=== PATIENT | female | born 1980 | race Caucasian/White ===

== ENCOUNTER 2022-07-10 05:45 | Day surgery (SDC) | payer BC ==
[2022-07-05 10:50] VITALS: BMI 29.5
[2022-07-09 10:02] LABS: Hemoglobin 12.8 g/dL (12.0-15.5); Mean Corpuscular HGB CONC 31.8 g/dL (32.0-36.0); Mean Corpuscular Volume 84.8 fl (81.6-98.3); Mean Platelet Volume 10.4 fl (7.4-10.4); Platelet Count 244 10x3/uL (150-450); RBC Distribution Width 13.3 % (11.5-14.5); Red Blood Cell (RBC) Count 4.74 10x6/uL (3.90-5.03); White Blood Cell (WBC) Count 6.6 10x3/uL (3.5-10.5)
[2022-07-09 10:28] LABS: BHCG - Serum Negative (NEGATIVE); Pregs Control Background? CLEAR/WHITE (CLR/WHITE); Pregs Control Bar Appear? YES (CONTROL BAR)
[2022-07-10] MEDS ORDERED: CeleCOXIB 100 MG CAP ONE (06:26)
[2022-07-10] MEDS ORDERED: Famotidine/PF 20 mg/2ml Vial ONE (06:27)
[2022-07-10] MEDS ORDERED: Gabapentin 300 MG CAP ONE (06:27)
[2022-07-10] MEDS ORDERED: Bupivacaine HCl 0.5%/Epinephrine 1:200,000/PF 30 ml Vial ONE (06:45)
[2022-07-10] MEDS ORDERED: CEFAZOLIN 2 GM VIAL ONE (07:10)
[2022-07-10] MEDS ORDERED: Scopolamine 1.5 mg/72 hour Patch ONE (07:19)
[2022-07-10] MEDS ORDERED: Ketorolac Tromethamine 30 MG/ML VIAL ONE (07:22)
[2022-07-10] MEDS ORDERED: Ondansetron PF 4 MG/2 ML Vial ONE (07:22)
[2022-07-10] MEDS ORDERED: Midazolam HCl 2 mg/2 ml Vial ONE (07:22)
[2022-07-10] MEDS ORDERED: Dexamethasone 4 mg/ml Vial ONE (07:22)
[2022-07-10] MEDS ORDERED: Rocuronium Bromide 10 MG/ML (10ML VIAL) ONE (07:22)
[2022-07-10] MEDS ORDERED: Esmolol 100 MG/10 ML VIAL ONE (07:22)
[2022-07-10] MEDS ORDERED: Lidocaine 1% PF 5 ML VIAL ONE (07:23)
[2022-07-10] MEDS ORDERED: SUGAMMADEX SODIUM 200 MG/2 ML VIAL ONE (07:25)
[2022-07-10] MEDS ORDERED: HYDROmorphone 0.5 MG/0.5 ML SYRINGE ONE (07:25)
[2022-07-10] MEDS ORDERED: Propofol 1,000 MG/100 ML VIAL IV ONE (07:25)
[2022-07-10] MEDS ORDERED: Ropivacaine 0.2% 550 ML 750 ML NERVE BLCK SCH (09:45)
[2022-07-10] MEDS ORDERED: Meperidine HCl/PF 25 MG/ML VIAL ONE (09:51)
[2022-07-10] MEDS ORDERED: Fentanyl 100 MCG/2 ML VIAL ONE (10:20)
[2022-07-10] MEDS ORDERED: Fentanyl 100 MCG/2 ML VIAL SLOW IVP PRN (11:43)
[2022-07-10] MEDS ORDERED: HYDROcodone/Acetaminophen 5/325 mg Tablet PO PRN ×2 (11:44)
[2022-07-10] MEDS ORDERED: Dextrose 5%-Lactated Ringers 1,000 ML IV SCH (11:45)
[2022-07-10] MEDS ORDERED: Ondansetron PF 4 MG/2 ML Vial IVP PRN (11:46)
== END 2022-07-10 15:00 | disposition home or self-care (01) ==
LOC: CSHSDC 05:45
PROVIDERS: ATTEND Obstetrics & Gynecology
PROC: 0UT74ZZ Resection of Bilateral Fallopian Tubes, Percutaneous Endoscopic Approach (ICD-10-PCS; principal; 2022-07-10)
PROC: 0UT94ZZ Resection of Uterus, Percutaneous Endoscopic Approach (ICD-10-PCS; principal; 2022-07-10)
DX: D25.9 Leiomyoma of uterus, unspecified (principal); N80.03 Adenomyosis of the uterus; N80.30 Endometriosis of pelvic peritoneum, unspecified; N94.6 Dysmenorrhea, unspecified; N73.6 Female pelvic peritoneal adhesions (postinfective); N97.9 Female infertility, unspecified; K21.9 Gastro-esophageal reflux disease without esophagitis; G89.18 Other acute postprocedural pain; Z87.42 Personal history of other diseases of the female genital tract
CPT/HCPCS: 84703; 85027; 86850; 86900; 86901; 88307; A4306; C9250; J1100; J1170; J1885; J2175; J2250; J2405; J2704; J2795; J3010; S0028